=== PATIENT | female | born 1945 | race Caucasian/White ===

== ENCOUNTER → 2016-04-19 | Outpatient (CLI) | payer OTHER, MEDICARE | LOC: BMCIMAGING 11:58 | PROVIDERS: ATTEND Internal Medicine | DX: R92.1 Mammographic calcification found on diagnostic imaging of breast (principal) | CPT/HCPCS: G0206 ==

== ENCOUNTER → 2016-06-05 | Outpatient (CLI) | payer OTHER, MEDICARE ==
[~2016-06-05] MED LIST: GADOBUTROL 10 ML VIAL IVP ONE
[2016-06-05 09:01] LABS: CREATININE 0.8 mg/dL (0.6-1.0); GLOMERULAR FILTRATION RATE > 60
== END ==
LOC: FIMAGING 07:55
PROVIDERS: ATTEND Internal Medicine
DX: N28.89 Other specified disorders of kidney and ureter (principal); D30.02 Benign neoplasm of left kidney; K80.20 Calculus of gallbladder without cholecystitis without obstruction
CPT/HCPCS: 74183; A9585

== ENCOUNTER → 2016-10-25 | Outpatient (CLI) | payer OTHER, MEDICARE | LOC: BMCIMAGING 13:31 | PROVIDERS: ATTEND Internal Medicine | DX: Z12.31 Encounter for screening mammogram for malignant neoplasm of breast (principal); Z86.000 Personal history of in-situ neoplasm of breast | CPT/HCPCS: G0202 ==

== ENCOUNTER → 2018-02-19 | Outpatient (CLI) | payer OTHER, MEDICARE | END | disposition home or self-care (01) | LOC: FIMAGING 10:22 | PROVIDERS: ATTEND Internal Medicine | DX: E28.39 Other primary ovarian failure (principal); M85.88 Other specified disorders of bone density and structure, other site; Z78.0 Asymptomatic menopausal state; Z85.3 Personal history of malignant neoplasm of breast; Z79.899 Other long term (current) drug therapy ==